=== PATIENT | male | born 1990 | race Caucasian/White ===

== ENCOUNTER 2017-02-16 16:24 | Emergency (ER) | payer MEDICAID | END 2017-02-16 18:40 | disposition home or self-care (01) | LOC: D.ER 16:24 | DX: M54.5 Low back pain (principal); M54.6 Pain in thoracic spine; W14.XXXA Fall from tree, initial encounter; Y93.89 Activity, other specified; Y92.89 Other specified places as the place of occurrence of the external cause; F17.200 Nicotine dependence, unspecified, uncomplicated ==

== ENCOUNTER 2017-02-23 16:15 | Observation (INO) | payer MEDICAID ==
[~2017-02-23] VITALS: Ht 175.3 cm; Wt 86.4 kg
--- NOTE | ~2017-02-23 | HP ---
PATIENT: CARY CHEN MEDICAL RECORD: [id number] ACCOUNT: [id number] LOCATION:[facility] : 90 ADMISSION DATE: 02/23/17 HISTORY AND PHYSICAL EXAMINATION HISTORY OF PRESENT ILLNESS: This 26-year-old med on-call patient from another town, presented to the Emergency Room upon overdose of medication. The patient did intentionally overdose on all of his medicines at home for attempted suicide attempt. This is his third attempted suicide over the last several years. The patient has been seeing a physician out of town, where he gets his medications, but took approximately 27 Ambien 10 mg tablets, 45 cyclobenzaprine 10 mg tablets, 15 Xanax tablets, 40 Mobic 15 mg tablets and 21 Baclofen 10 mg tablets and then also took sort of cocaine at least 1 big hit. The patient is presently resting in the ER, is somnolent secondary to the medications. He has had ER evaluation and appropriate established and workup. The patient removed his NG tube and is resting comfortably in no acute respiratory distress. PAST MEDICAL HISTORY: Significant for repeat drug overdoses, suicide attempt, ____ fracture, lumbar strain, dysuria, multiple musculoskeletal strains, urethritis, anxiety, insomnia, drug abuse, polysubstance abuse. ALLERGIES: THE PATIENT IS ALLERGIC TO STADOL AND TORADOL. PAST SURGICAL HISTORY: He has had a hemorrhoidectomy in the past. MEDICATIONS: Listed above. REVIEW OF SYSTEMS: Unobtainable. SOCIAL HISTORY: The patient does use illicit drugs and does continue to smoke at least 1/2 pack per day. Unknown on alcohol use secondary to somnolence at present time. PHYSICAL EXAMINATION: VITAL SIGNS: As below. GENERAL: He is somnolent 26-year-old white male that is in the ER, resting comfortably, pulse ox is stable with 2 liters nasal cannula. HEENT: His pupils are sluggish. Extraocular movements are intact. Oral cavity and oropharynx is clear. NECK: No cervical or pharyngeal adenopathy. No nuchal rigidity. LUNGS: Have shallow respirations, but are clear. HEART: Regular rate and rhythm with no murmurs, gallops or rubs. ABDOMEN: Soft and nontender, positive bowel sounds. No hepatosplenomegaly, no masses. EXTREMITIES: He has got multiple tattoos that are noted. NEUROLOGIC: His sensation is intact, does withdraw from pain. No arrhythmia noted on EKG. The patient has a positive drug screen that is present. ASSESSMENT: 1. Drug overdose, intentional. 2. Suicide attempt. 3. Polysubstance abuse. 4. Depression. HISTORY AND PHYSICAL [id number] CARY CHEN 5. Hypertension. His blood pressure right now is 130/95 with a heart rate of 90. PLAN: The patient will be monitored in the ICU, hydrate appropriately. Check laboratory appropriately and psychiatry evaluation in the a.m. TRANSINT:[id number] Voice Confirmation ID: [id number] DOCUMENT ID: [id number] ELVIRA BERRY MD CC: [id number] DICTATION DATE: 02/23/172112 INDUSTRIAL ENGINEERING: 02/23/172216 [facility] [address] [place] [address]
[2017-02-23 16:42] LABS: BASOPHILS 0.5 % (0-2); EOSINOPHILS 2.8 % (0-7); HEMATOCRIT 46.4 % (42.0-54.0); HEMOGLOBIN 16.4 g/dL (13.5-17.5); IMMATURE GRANULOCYTES 0.3 % (0-5); LYMPHOCYTES 19.2 % (15-50); MCH 29.7 pg (26.0-34.0); MCHC 35.3 g/dL (31.0-37.0); MCV 84.1 fL (80.0-100.0); MONOCYTES 7.6 % (2-11); NEUTROPHILS 69.6 % (40-80); PLATELET COUNT 215 10x3/uL (130-400); RBC 5.52 10x6/uL (4.20-6.10); RDW 13.5 % (11.5-14.5); WBC 8.7 10x3/uL (4.8-10.8)
[2017-02-23 17:03] LABS: ALBUMIN 3.9 g/dL (3.4-5.0); ALKALINE PHOSPHATASE 109 U/L (46-116); ALT (SGPT) 18 U/L (10-68); BILIRUBIN - TOTAL 0.56 mg/dL (0.2-1.3); CALC OSMOLALITY 277 mosm/kg (275-300); CALCIUM 9.5 mg/dL (8.5-10.1); CARBON DIOXIDE 27.8 mmol/L (21.0-32.0); CHLORIDE - SERUM 103 mmol/L (98-107); CREATININE - SERUM 0.8 mg/dL (0.6-1.3); GLUCOSE 90 mg/dL (74-106); POTASSIUM - SERUM 3.9 mmol/L (3.5-5.1); PROTEIN - SERUM 7.2 g/dL (6.4-8.2); SODIUM 140 mmol/L (136-145); UREA NITROGEN 9 mg/dL (7-18); eGFR NON AFRICAN AMERICAN > 90 mL/min (90-120)
[2017-02-23 17:12] LABS: APPEARANCE CLEAR (CLEAR); BILIRUBIN NEGATIVE (NEGATIVE); COLOR STRAW (YELLOW); GLUCOSE NEGATIVE (NEGATIVE); KETONE NEGATIVE (NEGATIVE); LEUKOCYTE ESTERASE NEGATIVE (NEGATIVE); NITRITE NEGATIVE (NEGATIVE); PROTEIN TRACE mg/dL (NEGATIVE); SPECIFIC GRAVITY 1.005 (1.005-1.020); UROBILINOGEN NORMAL (NORMAL)
[2017-02-23 17:12] LABS: BILIRUBIN - DIRECT 0.11 mg/dL (0.00-0.30)
[2017-02-23 17:17] LABS: UDS - AMPHET NEGATIVE QUAL (NEGATIVE); UDS - BARB NEGATIVE QUAL (NEGATIVE); UDS - BENZO POSITIVE QUAL (NEGATIVE); UDS - COCAINE POSITIVE QUAL (NEGATIVE); UDS - METH NEGATIVE QUAL (NEGATIVE); UDS - OPIATE NEGATIVE QUAL (NEGATIVE); UDS - PCP NEGATIVE QUAL (NEGATIVE); UDS - THC NEGATIVE QUAL (NEGATIVE)
[2017-02-23 22:10] LABS: CKMB 0.5 U/L (0.0-3.6); CREATINE KINASE 73 UL (21-232)
[2017-02-23 22:16] LABS: TROPONIN-I < 0.017 ng/mL (0.000-0.060)
[2017-02-24 00:45] LABS: CKMB 0.3 U/L (0.0-3.6); CREATINE KINASE 42 UL (21-232)
[2017-02-24 01:03] LABS: TROPONIN-I < 0.017 ng/mL (0.000-0.060)
[2017-02-24 07:17] LABS: BASOPHILS 0.3 % (0-2); EOSINOPHILS 1.9 % (0-7); HEMATOCRIT 45.3 % (42.0-54.0); HEMOGLOBIN 15.3 g/dL (13.5-17.5); IMMATURE GRANULOCYTES 0.2 % (0-5); LYMPHOCYTES 16.4 % (15-50); MCH 28.8 pg (26.0-34.0); MCHC 33.8 g/dL (31.0-37.0); MCV 85.2 fL (80.0-100.0); MEAN PLATELET VOLUME 11.2 fL (7.4-10.4); MONOCYTES 8.9 % (2-11); NEUTROPHILS 72.3 % (40-80); PLATELET COUNT 209 10x3/uL (130-400); RBC 5.32 10x6/uL (4.20-6.10); RDW 13.8 % (11.5-14.5); WBC 10.2 10x3/uL (4.8-10.8)
[2017-02-24 07:25] LABS: ALBUMIN 3.3 g/dL (3.4-5.0); ALKALINE PHOSPHATASE 88 U/L (46-116); ALT (SGPT) 17 U/L (10-68); AMYLASE - SERUM 24 U/L (25-115); CALC OSMOLALITY 278 mosm/kg (275-300); CALCIUM 8.9 mg/dL (8.5-10.1); CARBON DIOXIDE 25.5 mmol/L (21.0-32.0); CHLORIDE - SERUM 106 mmol/L (98-107); CKMB 0.4 U/L (0.0-3.6); CREATINE KINASE 35 UL (21-232); CREATININE - SERUM 0.7 mg/dL (0.6-1.3); GLUCOSE 93 mg/dL (74-106); LIPASE 104 U/L (73-393); POTASSIUM - SERUM 4.2 mmol/L (3.5-5.1); PROTEIN - SERUM 6.4 g/dL (6.4-8.2); SODIUM 141 mmol/L (136-145); THYROID STIMULATING HORMONE 0.54 uIU/mL (0.36-3.74); TROPONIN-I < 0.017 ng/mL (0.000-0.060); UREA NITROGEN 8 mg/dL (7-18); eGFR NON AFRICAN AMERICAN > 90 mL/min (90-120)
[2017-02-24 09:01] VITALS: BP 131/86; Ht 175.3 cm; Wt 86.4 kg
[2017-02-24] MEDS ORDERED: XANAX1 MG PO (09:26)
[2017-02-24] MEDS ORDERED: AMBIEN10 MG PO (09:26)
[2017-02-24] MEDS ORDERED: CYCLOBENZAPRINE10 MG PO (09:27)
[2017-02-24] MEDS ORDERED: PEPCID20 MG PO (09:27)
[2017-02-24] MEDS ORDERED: CLARITIN 10 MG10 MG PO (09:27)
[2017-02-24] MEDS ORDERED: MOBIC7.5 MG PO (09:28)
--- NOTE | 2017-02-24 09:29 | NUR ---
ASSESSMENT COMPLETE PER FLOWSHEET WILL SHARE CARE WITH [facility].
--- NOTE | 2017-02-25 09:58 | NUR ---
Is the patient Alert and Oriented? Yes 0 * How many steps to enter\exit or inside your home? 4 0 * PCP DR. IQBAL 0 * Pharmacy [facility] ON [address] 0 * Preadmission Environment Home with Family 0 * ADLs Independent 0 * Equipment None 0 * List name and contact numbers for known caregivers / representatives who currently or will assist patient after discharge: SPOUSE: ALEXANDRA [phone] * Community resources currently utilized None 0 * Additional services required to return to the preadmission environment? No 0 * Can the patient safely return to the preadmission environment? Yes 0 * Has this patient been hospitalized within the prior 30 days at any hospital? No PATIENT STATES HE WAS INDEPENDENT IN ALL ADL'S PRIOR TO COMING TO THE HOSPITAL. HE LIVES AT HOME WITH HIS , ALEXANDRA, AND SHE WILL BE DRIVING HIM HOME AT DISCHARGE. HE STATES HIS PCP IS DR. IQBAL AND HE GETS HIS MEDS FROM [facility] ON [address]. PATIENT DENIES USE OF ANY EQUIPMENT AND DENIES EVER HAVING HOME HEALTH CARE. HE STATES THERE ARE 4 STEPS TO ENTER HIS HOME. NO DISHCARGE NEEDS AT THIS TIME.
--- NOTE | 2017-02-25 10:40 | NUR ---
PT DISCHARGED FROM ER TO [facility] IN [place].
== END 2017-02-25 10:40 ==
LOC: D.ER 16:15 → D.ICU 20:34 → OBSVTIME 20:34 → D.ICU 20:34
PROVIDERS: Family Medicine; ADMIT Family Medicine
DX: T50.902A Poisoning by unspecified drugs, medicaments and biological substances, intentional self-harm, initial encounter (principal); F19.10 Other psychoactive substance abuse, uncomplicated; F41.9 Anxiety disorder, unspecified; F32.9 Major depressive disorder, single episode, unspecified; I10 Essential (primary) hypertension; T14.91 Suicide attempt; G47.00 Insomnia, unspecified; Z72.0 Tobacco use

== ENCOUNTER 2017-05-13 15:31 | Emergency (ER) | payer MEDICAID ==
[2017-02-24 09:01] VITALS: BMI 28.1
[~2017-05-13 15:31] MED LIST: AMBIEN10 MG PO; CLARITIN 10 MG10 MG PO; CYCLOBENZAPRINE10 MG PO; MOBIC7.5 MG PO; PEPCID20 MG PO; XANAX1 MG PO
[2017-05-13 16:08] LABS: UDS - AMPHET NEGATIVE QUAL (NEGATIVE); UDS - BARB NEGATIVE QUAL (NEGATIVE); UDS - BENZO NEGATIVE QUAL (NEGATIVE); UDS - COCAINE NEGATIVE QUAL (NEGATIVE); UDS - METH NEGATIVE QUAL (NEGATIVE); UDS - OPIATE NEGATIVE QUAL (NEGATIVE); UDS - PCP NEGATIVE QUAL (NEGATIVE); UDS - THC NEGATIVE QUAL (NEGATIVE)
[2017-05-13 16:11] LABS: APPEARANCE CLEAR (CLEAR); BILIRUBIN NEGATIVE (NEGATIVE); COLOR YELLOW (YELLOW); GLUCOSE NEGATIVE (NEGATIVE); KETONE NEGATIVE (NEGATIVE); LEUKOCYTE ESTERASE NEGATIVE (NEGATIVE); NITRITE NEGATIVE (NEGATIVE); PROTEIN NEGATIVE (NEGATIVE); UROBILINOGEN NORMAL (NORMAL)
[2017-05-13 16:25] LABS: BASOPHILS 0.3 % (0-2); EOSINOPHILS 0.6 % (0-7); HEMATOCRIT 45.1 % (42.0-54.0); HEMOGLOBIN 15.7 g/dL (13.5-17.5); IMMATURE GRANULOCYTES 0.1 % (0-5); LYMPHOCYTES 22.8 % (15-50); MCH 29.2 pg (26.0-34.0); MCHC 34.8 g/dL (31.0-37.0); MEAN PLATELET VOLUME 10.3 fL (7.4-10.4); MONOCYTES 9.9 % (2-11); NEUTROPHILS 66.3 % (40-80); PLATELET COUNT 227 10x3/uL (130-400); RBC 5.37 10x6/uL (4.20-6.10); RDW 12.7 % (11.5-14.5); WBC 6.8 10x3/uL (4.8-10.8)
[2017-05-13 16:59] LABS: ALBUMIN 4.2 g/dL (3.4-5.0); ALKALINE PHOSPHATASE 102 U/L (46-116); ALT (SGPT) 14 U/L (10-68); BILIRUBIN - TOTAL 0.63 mg/dL (0.2-1.3); CALC OSMOLALITY 287 mosm/kg (275-300); CALCIUM 9.5 mg/dL (8.5-10.1); CARBON DIOXIDE 29.4 mmol/L (21.0-32.0); CHLORIDE - SERUM 106 mmol/L (98-107); CREATININE - SERUM 0.9 mg/dL (0.6-1.3); GLUCOSE 92 mg/dL (74-106); POTASSIUM - SERUM 4.4 mmol/L (3.5-5.1); PROTEIN - SERUM 7.7 g/dL (6.4-8.2); SODIUM 145 mmol/L (136-145); UREA NITROGEN 10 mg/dL (7-18); eGFR NON AFRICAN AMERICAN > 90 mL/min (90-120)
== END 2017-05-13 21:27 ==
LOC: D.ER 15:31
PROVIDERS: Emergency Medicine
DX: R45.851 Suicidal ideations (principal)

== ENCOUNTER 2017-07-03 08:37 | Emergency (ER) | payer MEDICAID ==
[2017-02-24 09:01] VITALS: BMI 28.1
== END 2017-07-03 09:07 | disposition home or self-care (01) ==
LOC: D.ER 08:37
DX: K02.9 Dental caries, unspecified (principal); K08.89 Other specified disorders of teeth and supporting structures; F17.200 Nicotine dependence, unspecified, uncomplicated

== ENCOUNTER 2017-07-27 18:59 | Emergency (ER) | payer MEDICAID ==
[2017-02-24 09:01] VITALS: BMI 28.1
[2017-07-27 19:50] LABS: APPEARANCE CLEAR (CLEAR); BILIRUBIN NEGATIVE (NEGATIVE); COLOR YELLOW (YELLOW); GLUCOSE NEGATIVE (NEGATIVE); KETONE NEGATIVE (NEGATIVE); LEUKOCYTE ESTERASE NEGATIVE (NEGATIVE); NITRITE NEGATIVE (NEGATIVE); PROTEIN NEGATIVE (NEGATIVE); SPECIFIC GRAVITY 1.025 (1.005-1.020); UROBILINOGEN NORMAL (NORMAL)
[2017-07-27 21:31] LABS: BASOPHILS 0.4 % (0-2); EOSINOPHILS 2.4 % (0-7); HEMATOCRIT 41.7 % (42.0-54.0); HEMOGLOBIN 14.8 g/dL (13.5-17.5); IMMATURE GRANULOCYTES 0.2 % (0-5); LYMPHOCYTES 24.3 % (15-50); MCH 29.7 pg (26.0-34.0); MCHC 35.5 g/dL (31.0-37.0); MCV 83.6 fL (80.0-100.0); MEAN PLATELET VOLUME 10.2 fL (7.4-10.4); MONOCYTES 9.1 % (2-11); NEUTROPHILS 63.6 % (40-80); PLATELET COUNT 218 10x3/uL (130-400); RBC 4.99 10x6/uL (4.20-6.10); WBC 10.8 10x3/uL (4.8-10.8)
[2017-07-27 21:56] LABS: CALC OSMOLALITY 271 mosm/kg (275-300); CALCIUM 9.4 mg/dL (8.5-10.1); CARBON DIOXIDE 30.9 mmol/L (21.0-32.0); CHLORIDE - SERUM 101 mmol/L (98-107); CREATININE - SERUM 0.8 mg/dL (0.6-1.3); GLUCOSE 95 mg/dL (74-106); POTASSIUM - SERUM 3.6 mmol/L (3.5-5.1); SODIUM 137 mmol/L (136-145); UREA NITROGEN 8 mg/dL (7-18); eGFR NON AFRICAN AMERICAN > 90 mL/min (90-120)
== END 2017-07-27 23:17 | disposition home or self-care (01) ==
LOC: D.ER 18:59
PROVIDERS: Emergency Medicine; Nurse Practitioner Acute Care
DX: N41.0 Acute prostatitis (principal); F17.200 Nicotine dependence, unspecified, uncomplicated

== ENCOUNTER 2017-08-03 14:55 | Emergency (ER) | payer MEDICAID ==
[2017-02-24 09:01] VITALS: BMI 28.1
== END 2017-08-03 15:10 | disposition left against medical advice (07) ==
LOC: D.ER 14:55
DX: Z02.9 Encounter for administrative examinations, unspecified (principal)

== ENCOUNTER 2017-08-04 19:21 | Emergency (ER) | payer MEDICAID ==
[2017-02-24 09:01] VITALS: BMI 28.1
[2017-08-04 19:59] LABS: APPEARANCE CLEAR (CLEAR); COLOR YELLOW (YELLOW); NITRITE NEGATIVE (NEGATIVE); PROTEIN NEGATIVE (NEGATIVE); SPECIFIC GRAVITY 1.015 (1.005-1.020)
[2017-08-04 20:00] LABS: BILIRUBIN NEGATIVE (NEGATIVE); GLUCOSE NEGATIVE (NEGATIVE); KETONE NEGATIVE (NEGATIVE); UROBILINOGEN NORMAL (NORMAL)
[2017-08-04 20:07] LABS: BASOPHILS 0.5 % (0-2); HEMATOCRIT 42.7 % (42.0-54.0); HEMOGLOBIN 15.6 g/dL (13.5-17.5); IMMATURE GRANULOCYTES 0.1 % (0-5); LYMPHOCYTES 37.9 % (15-50); MCH 30.1 pg (26.0-34.0); MCHC 36.5 g/dL (31.0-37.0); MCV 82.3 fL (80.0-100.0); MEAN PLATELET VOLUME 10.4 fL (7.4-10.4); MONOCYTES 7.9 % (2-11); NEUTROPHILS 50.6 % (40-80); PLATELET COUNT 219 10x3/uL (130-400); RBC 5.19 10x6/uL (4.20-6.10); RDW 12.7 % (11.5-14.5); WBC 8.9 10x3/uL (4.8-10.8)
[2017-08-04 20:31] LABS: ALBUMIN 3.8 g/dL (3.4-5.0); ALKALINE PHOSPHATASE 95 U/L (46-116); ALT (SGPT) 31 U/L (10-68); BILIRUBIN - TOTAL 0.24 mg/dL (0.2-1.3); CALC OSMOLALITY 269 mosm/kg (275-300); CALCIUM 8.9 mg/dL (8.5-10.1); CARBON DIOXIDE 28.4 mmol/L (21.0-32.0); CHLORIDE - SERUM 102 mmol/L (98-107); CREATININE - SERUM 0.8 mg/dL (0.6-1.3); GLUCOSE 91 mg/dL (74-106); PROTEIN - SERUM 6.5 g/dL (6.4-8.2); SODIUM 136 mmol/L (136-145); UREA NITROGEN 7 mg/dL (7-18); eGFR NON AFRICAN AMERICAN > 90 mL/min (90-120)
[2017-08-04 20:35] LABS: CKMB 0.6 U/L (0.0-3.6); CREATINE KINASE 109 UL (21-232); TROPONIN-I < 0.017 ng/mL (0.000-0.060)
== END 2017-08-04 21:13 | disposition home or self-care (01) ==
LOC: D.ER 19:21
PROVIDERS: Family Medicine
DX: S39.012A Strain of muscle, fascia and tendon of lower back, initial encounter (principal); W10.9XXA Fall (on) (from) unspecified stairs and steps, initial encounter; Y93.89 Activity, other specified; Y92.029 Unspecified place in mobile home as the place of occurrence of the external cause; K59.00 Constipation, unspecified; R07.89 Other chest pain; R00.0 Tachycardia, unspecified

== ENCOUNTER 2017-08-07 14:38 | Emergency (ER) | payer MEDICAID ==
[2017-02-24 09:01] VITALS: BMI 28.1
[2017-08-07 15:29] LABS: BASOPHILS 0.2 % (0-2); EOSINOPHILS 0.9 % (0-7); HEMATOCRIT 41.7 % (42.0-54.0); HEMOGLOBIN 14.6 g/dL (13.5-17.5); IMMATURE GRANULOCYTES 0.3 % (0-5); LYMPHOCYTES 17.2 % (15-50); MCH 29.5 pg (26.0-34.0); MCV 84.2 fL (80.0-100.0); MEAN PLATELET VOLUME 10.6 fL (7.4-10.4); MONOCYTES 6.9 % (2-11); NEUTROPHILS 74.5 % (40-80); PLATELET COUNT 204 10x3/uL (130-400); RBC 4.95 10x6/uL (4.20-6.10); RDW 12.9 % (11.5-14.5); WBC 11.7 10x3/uL (4.8-10.8)
[2017-08-07 15:46] LABS: ALBUMIN 3.8 g/dL (3.4-5.0); ALKALINE PHOSPHATASE 87 U/L (46-116); ALT (SGPT) 31 U/L (10-68); CALC OSMOLALITY 279 mosm/kg (275-300); CALCIUM 8.9 mg/dL (8.5-10.1); CARBON DIOXIDE 29.9 mmol/L (21.0-32.0); CHLORIDE - SERUM 103 mmol/L (98-107); GLUCOSE 95 mg/dL (74-106); POTASSIUM - SERUM 3.9 mmol/L (3.5-5.1); PROTEIN - SERUM 6.5 g/dL (6.4-8.2); SODIUM 141 mmol/L (136-145); UREA NITROGEN 10 mg/dL (7-18); eGFR NON AFRICAN AMERICAN > 90 mL/min (90-120)
[2017-08-07 17:45] LABS: APPEARANCE CLEAR (CLEAR); BILIRUBIN NEGATIVE (NEGATIVE); COLOR YELLOW (YELLOW); GLUCOSE NEGATIVE (NEGATIVE); KETONE NEGATIVE (NEGATIVE); NITRITE NEGATIVE (NEGATIVE); PROTEIN NEGATIVE (NEGATIVE); UROBILINOGEN NORMAL (NORMAL)
[2017-08-07 17:49] LABS: UDS - AMPHET NEGATIVE QUAL (NEGATIVE); UDS - BARB NEGATIVE QUAL (NEGATIVE); UDS - BENZO POSITIVE QUAL (NEGATIVE); UDS - COCAINE NEGATIVE QUAL (NEGATIVE); UDS - OPIATE POSITIVE QUAL (NEGATIVE); UDS - PCP NEGATIVE QUAL (NEGATIVE); UDS - THC POSITIVE QUAL (NEGATIVE)
== END 2017-08-07 22:57 | disposition short-term general hospital (02) ==
LOC: D.ER 14:38
PROVIDERS: Emergency Medicine
DX: R45.851 Suicidal ideations (principal); F17.200 Nicotine dependence, unspecified, uncomplicated

== ENCOUNTER 2017-08-17 22:10 | Emergency (ER) | payer MEDICAID ==
[2017-02-24 09:01] VITALS: BMI 28.1
[2017-08-17 22:39] LABS: APPEARANCE CLEAR (CLEAR); BILIRUBIN NEGATIVE (NEGATIVE); COLOR DK YELLOW (YELLOW); GLUCOSE NEGATIVE (NEGATIVE); KETONE NEGATIVE (NEGATIVE); NITRITE NEGATIVE (NEGATIVE); PROTEIN NEGATIVE (NEGATIVE); UROBILINOGEN NORMAL (NORMAL)
[2017-08-17 22:43] LABS: UDS - AMPHET POSITIVE QUAL (NEGATIVE); UDS - BARB NEGATIVE QUAL (NEGATIVE); UDS - BENZO POSITIVE QUAL (NEGATIVE); UDS - COCAINE NEGATIVE QUAL (NEGATIVE); UDS - OPIATE NEGATIVE QUAL (NEGATIVE); UDS - PCP NEGATIVE QUAL (NEGATIVE); UDS - THC POSITIVE QUAL (NEGATIVE)
[2017-08-17 22:52] LABS: BASOPHILS 0.3 % (0-2); HEMATOCRIT 42.5 % (42.0-54.0); HEMOGLOBIN 14.9 g/dL (13.5-17.5); IMMATURE GRANULOCYTES 0.1 % (0-5); LYMPHOCYTES 17.5 % (15-50); MCH 29.3 pg (26.0-34.0); MCHC 35.1 g/dL (31.0-37.0); MCV 83.5 fL (80.0-100.0); MONOCYTES 13.1 % (2-11); PLATELET COUNT 203 10x3/uL (130-400); RBC 5.09 10x6/uL (4.20-6.10); RDW 12.9 % (11.5-14.5); WBC 7.9 10x3/uL (4.8-10.8)
[2017-08-17 23:05] LABS: ALBUMIN 3.9 g/dL (3.4-5.0); ALKALINE PHOSPHATASE 119 U/L (46-116); ALT (SGPT) 60 U/L (10-68); CALC OSMOLALITY 287 mosm/kg (275-300); CALCIUM 9.2 mg/dL (8.5-10.1); CARBON DIOXIDE 28.8 mmol/L (21.0-32.0); CHLORIDE - SERUM 104 mmol/L (98-107); CREATININE - SERUM 0.9 mg/dL (0.6-1.3); GLUCOSE 101 mg/dL (74-106); POTASSIUM - SERUM 3.7 mmol/L (3.5-5.1); PROTEIN - SERUM 7.2 g/dL (6.4-8.2); SODIUM 143 mmol/L (136-145); UREA NITROGEN 21 mg/dL (7-18); eGFR NON AFRICAN AMERICAN > 90 mL/min (90-120)
== END 2017-08-18 02:24 | disposition short-term general hospital (02) ==
LOC: D.ER 22:10
PROVIDERS: Emergency Medicine
DX: F15.10 Other stimulant abuse, uncomplicated (principal); F12.10 Cannabis abuse, uncomplicated; F13.10 Sedative, hypnotic or anxiolytic abuse, uncomplicated; R45.851 Suicidal ideations; F33.9 Major depressive disorder, recurrent, unspecified

== ENCOUNTER 2017-11-27 00:03 | Emergency (ER) | payer MEDICAID ==
[2017-02-24 09:01] VITALS: BMI 28.1
== END 2017-11-27 01:43 | disposition home or self-care (01) ==
LOC: D.ER 00:03
DX: S16.1XXA Strain of muscle, fascia and tendon at neck level, initial encounter (principal); W11.XXXA Fall on and from ladder, initial encounter; Y93.9 Activity, unspecified; Y92.019 Unspecified place in single-family (private) house as the place of occurrence of the external cause; S29.012A Strain of muscle and tendon of back wall of thorax, initial encounter

== ENCOUNTER 2018-01-10 20:11 | Emergency (ER) | payer MEDICAID ==
[2017-02-24 09:01] VITALS: BMI 28.1
[2018-01-10 21:29] LABS: APPEARANCE CLEAR (CLEAR); BILIRUBIN NEGATIVE (NEGATIVE); COLOR YELLOW (YELLOW); GLUCOSE NEGATIVE (NEGATIVE); KETONE NEGATIVE (NEGATIVE); NITRITE NEGATIVE (NEGATIVE); PROTEIN NEGATIVE (NEGATIVE); UROBILINOGEN NORMAL (NORMAL)
[2018-01-10 21:33] LABS: UDS - AMPHET NEGATIVE QUAL (NEGATIVE); UDS - BARB NEGATIVE QUAL (NEGATIVE); UDS - BENZO NEGATIVE QUAL (NEGATIVE); UDS - COCAINE NEGATIVE QUAL (NEGATIVE); UDS - OPIATE NEGATIVE QUAL (NEGATIVE); UDS - PCP NEGATIVE QUAL (NEGATIVE); UDS - THC NEGATIVE QUAL (NEGATIVE)
== END 2018-01-10 22:30 | disposition home or self-care (01) ==
LOC: D.ER 20:11
PROVIDERS: Family Medicine
DX: S06.0X1A Concussion with loss of consciousness of 30 minutes or less, initial encounter (principal); W17.89XA Other fall from one level to another, initial encounter; Y93.89 Activity, other specified; Y92.89 Other specified places as the place of occurrence of the external cause

== ENCOUNTER → 2020-03-09 10:29 | Outpatient (CLI) | payer BC ==
[2017-02-24 09:01] VITALS: BMI 28.1
== END | disposition home or self-care (01) ==
LOC: D.RAD 03-02 09:00 → D.MRI 03-02 10:00 → D.RAD 03-03 14:00
PROVIDERS: ATTEND Clinical Nurse Specialist Family Health
DX: M25.511 Pain in right shoulder (principal)

== ENCOUNTER 2020-03-27 02:56 | Emergency (ER) | payer BC ==
[~2020-03-27] VITALS: Ht 175.3 cm; Wt 69.1 kg
[2020-03-27 03:00] VITALS: Ht 175.3 cm; Wt 69.1 kg
[2020-03-27] MEDS ORDERED: CYMBALTA60 MG PO (03:01)
[2020-03-27] MEDS ORDERED: PEPCID AC20 MG PO (03:01)
[2020-03-27] MEDS ORDERED: CLINDAMYCIN HC150 MG PO (03:02)
[2020-03-27] MEDS ORDERED: HYDROCODON-ACE1 EAC7 PO (03:21)
[2020-03-27 03:39] VITALS: BP 133/85
== END 2020-03-27 03:40 | disposition home or self-care (01) ==
LOC: D.ER 02:56
DX: K08.89 Other specified disorders of teeth and supporting structures (principal); K02.9 Dental caries, unspecified; Z72.0 Tobacco use; Z91.14 Patient's other noncompliance with medication regimen

== ENCOUNTER 2020-03-28 16:36 | Emergency (ER) | payer BC ==
[~2020-03-28] VITALS: Ht 175.3 cm; Wt 69.1 kg
[~2020-03-28 16:36] MED LIST changes: +CLINDAMYCIN HC150 MG PO; +CYMBALTA60 MG PO; +HYDROCODON-ACE1 EAC7 PO; +PEPCID AC20 MG PO
[2020-03-28 16:54] VITALS: BP 156/90; Ht 175.3 cm; Wt 69.1 kg
== END 2020-03-28 17:09 | disposition home or self-care (01) ==
LOC: D.ER 16:36
DX: K08.89 Other specified disorders of teeth and supporting structures (principal)

== ENCOUNTER 2020-04-17 06:20 | Day surgery (SDC) | payer BC ==
[~2020-04-17] VITALS: Ht 172.7 cm; Wt 71.2 kg
[~2020-04-17 06:20] MED LIST changes: +BUPRENORPHIN-N1 EACH SL
[2020-04-17 06:48] VITALS: BP 136/87; Ht 172.7 cm; Wt 71.2 kg
[2020-04-17] MEDS ORDERED: IBUPROFEN800 MG PO (10:05)
--- NOTE | 2020-04-17 11:04 | NUR ---
[facility] NOTIFIED OF CONSULT.
--- NOTE | 2020-04-17 11:32 | NUR ---
DR DAMON NOTIFIED AND REVIEWED PT'S BEHAVIOR AND ASSESSMENT. PT IS LOW RISK. RESOURCES GIVEN AND HE VERBALIZES UNDERSTANDING.
--- NOTE | 2020-04-18 12:56 | OP ---
PATIENT NAME: CARY CHEN MEDICAL RECORD: [id number] :89 LOCATION:[facility] ADMISSION DATE: SURGEON: PARTH GONZALES MD DATE OF OPERATION: 04/17/2020 PREOPERATIVE DIAGNOSES: 1. SLAP lesion of the right shoulder. 2. Impingement syndrome of the right shoulder. POSTOPERATIVE DIAGNOSES: 1. SLAP lesion of the right shoulder. 2. Impingement syndrome of the right shoulder. PROCEDURES: 1. Arthroscopic SLAP repair of the right shoulder. 2. Arthroscopic subacromial decompression, acromioplasty, and bursectomy. SURGEON: Parth Gonzales MD TUFTING SUPERVISOR: TESSIE Chiu ANESTHESIA: General. INTRAOPERATIVE COMPLICATIONS: None. SUMMARY OF PATHOLOGIC FINDINGS: The patient had a straightforward SLAP lesion from anterior to posterior, consistent with preoperative MRI and patient's exam. The patient also had excoriation of the coracoacromial ligament with a downward sloping of acromion. OPERATIVE SUMMARY IN DETAIL: After obtaining the appropriate preoperative orthopedic surgery consent as well as anesthetic consultation, evaluation and clearance, the patient was brought to the operating room and placed on the operating table in a supine position. After adequate general laryngeal airway mask was administered, the patient was placed in a left lateral decubitus position. All pressure points were well padded to include down leg peroneal pad as well as axillary roll. The patient was held firmly to the operating table using vacuum pack suction system. Right upper extremity and shoulder were then prepped and draped in routine sterile fashion. The arm was held in the Arthrex traction boom at 30 degrees of forward flexion, 30 degrees of abduction, 10 pounds of traction laterally. At this point, appropriate timeout was taken and agreed upon by all given the patient's unique identifiers. Arthroscopy was established in the glenohumeral joint from a posterior portal. Anterior portal was established in the anterior safe interval. Diagnostic arthroscopy did show the patient to have a SLAP lesion. Accessory tertiary portal was established. The superior aspect of the glenoid was prepared for reapproximation of the labrum. Two 2.7 suture tacks were utilized with FiberTape to reapproximate the labrum just posterior to the biceps and just anterior to the biceps. This resulted in excellent reapproximation with good tight snug and secure fit. Attention then turned to the subacromial space. While in the subacromial space, [place] tissue ablation system was utilized to denude the undersurface of the acromion of all soft tissue elements. A 5.0 barrel bur was used for acromioplasty with acromioclavicular joint which was still covered and did not violate the AC joint. There were no inferior OPERATIVE REPORT [id number] CARY CHEN osteophytes. A 5.0 resector was then utilized to debride the remainder of all the bursa. Having completed this, arthroscopy portals were closed in routine interrupted fashion using 4-0 Prolene TESSIE Chiu. Sterile dressings were applied. The patient was awakened and taken to recovery room in stable condition. All final needle and sponge counts were correct. TRANSINT:[id number] Voice Confirmation ID: [id number] DOCUMENT ID: [id number] JANET KHAN, PARTH SCHWARTZ at 1256 CC: [id number] DICTATION DATE: 04/17/20 1008 GEOINT ANALYST: 04/17/208 [facility] 04/17/20 [facility] [address] [place] [address]
== END 2020-04-17 11:50 | disposition home or self-care (01) ==
LOC: D.OPS 06:20
PROVIDERS: ATTEND Orthopaedic Surgery
DX: S43.431A Superior glenoid labrum lesion of right shoulder, initial encounter (principal); M75.41 Impingement syndrome of right shoulder; Z86.73 Personal history of transient ischemic attack (TIA), and cerebral infarction without residual deficits; S43.432A Superior glenoid labrum lesion of left shoulder, initial encounter; M75.22 Bicipital tendinitis, left shoulder; F19.21 Other psychoactive substance dependence, in remission; M25.511 Pain in right shoulder; X58.XXXA Exposure to other specified factors, initial encounter